=== PATIENT | female | born 1990 | race Caucasian/White ===

== ENCOUNTER 2017-04-22 22:27 | Emergency (ER) | payer OTHER ==
[2017-04-22 23:00] VITALS: BP 128/84; PULSE 102; TEMP 98.6; BMI 21.2
--- NOTE | 2017-04-22 23:35 | PDOC ---
History of Present Illness - General Chief Complaint: Wound Stated Complaint: CYST Time Seen by Provider: 04/22/17 22:39 - History of Present Illness Initial Comments: 04/22/17 23:35 CHIEF COMPLAINT: HISTORY OF PRESENT ILLNESS: No recent travel or sick contacts. PAST MEDICAL HISTORY: Denies past medical history FAMILY HISTORY: Denies SOCIAL HISTORY: Lives at home with ____. Occupation: . Denies tobacco, alcohol, illicit drug use. SURGICAL HISTORY: Denies ALLERGIES: No known drug allergies REVIEW OF SYSTEMS General/Constitutional: Denies fever or chills. Denies weakness, weight change. HEENT: Denies change in vision. Denies ear pain or discharge. Denies sore throat. Cardiovascular: Denies chest pain or shortness of breath. Respiratory: Denies cough, wheezing, or hemoptysis. Gastrointestinal: Denies nausea, vomiting, diarrhea or constipation. Denies rectal bleeding. Genitourinary: Denies dysuria, frequency, or change in urination. Musculoskeletal: Denies joint or muscle swelling or pain. Denies neck or back pain. Skin and breasts: Denies rash or easy bruising. Neurologic: Denies headache, vertigo, loss of consciousness, or loss of sensation. Psychiatric: Denies depression or anxiety. Endocrine: Denies increased thirst. Denies abnormal weight change. Hematologic/Lymphatic: Denies anemia, easy bleeding, or history of blood clots. Allergic/Immunologic: Denies hives or skin allergy. Denies latex allergy. PHYSICAL EXAM General Appearance: Well-appearing, appropriately dressed. No apparent distress , no intoxication. HEENT: EOMI, PERRLA, normal ENT inspection, normal voice, TMs normal, pharynx normal. No conjunctival pallor. No photophobia, scleral icterus. Neck: Supple. Trachea midline. No tenderness, rigidity, carotid bruit, stridor , lymphadenopathy, or thyromegaly. Respiratory/Chest: Lungs CTAB. No shortness of breath, chest tenderness, respiratory distress, accessory muscle use. No crackles, rales, rhonchi, stridor , wheezing, dullness Cardiovascular: RRR. S1, S2. No JVD, murmur, bradycardia, tachycardia. Vascular Pulses: Dorsalis-Pedis (R): 2+, Dorsalis-Pedis (L): 2+ Gastrointestinal/Abdominal: Normal bowel sounds. Abdomen soft, non-distended. No tenderness or rebound tenderness. No organomegaly, pulsatile mass, guarding , hernia, hepatomegaly, splenomegaly. Lymphatic: No adenopathy, tenderness. Musculoskeletal/Extremities: Normal inspection. FROM of all extremities, normal capillary refill. Pelvis Stable. No CVA tenderness. No tenderness to extremities, pedal edema, swelling, erythema or deformity. Integumentary: Appropriate color, dry, warm. No cyanosis, erythema, jaundice or rash Neurologic: recruiting administrator II-XII intact. Fully oriented, alert. Appropriate mood/affect. Motor strength 5/5. No appreciable EOM palsy, facial droop or sensory deficit. Past History - Past Medical History Allergies/Adverse Reactions: Allergies Allergy/AdvReac Type Severity Reaction Status Date / Time No Known Allergies Allergy Verified 04/22/17 22:50 Home Medications: Ambulatory Orders Bacitracin - [Bacitracin Topical Ointment -] 1 applic TP TID #1 tube 04/22/17 Cephalexin Monohydrate [Keflex -] 500 mg PO BID #20 capsule 04/22/17 Dextroamphetamine/Amphetamine [Adderall Xr 20 mg Capsule] 20 mg PO DAILY Escitalopram Oxalate [Lexapro -] 15 mg PO DAILY 04/22/17 - Immunization History Immunization Up to Date: Yes - Suicide/Smoking/Psychosocial Hx Smoking History: Never smoked Have you smoked in the past 12 months: No Information on smoking cessation initiated: No Hx Alcohol Use: No Drug/Substance Use Hx: No Substance Use Type: None *Physical Exam - Vital Signs Last Vital Signs Temp Pulse Resp BP Pulse Ox 98.6 F 102 H 18 128/84 98 04/22/17 22:48 04/22/17 22:48 04/22/17 22:48 04/22/17 22:48 04/22/17 22:48 *DC/Admit/Observation/Transfer Diagnosis at time of Disposition: Ganglion cyst - Discharge Dispostion Disposition: HOME Condition at time of disposition: Stable Admit: No - Prescriptions Prescriptions: Bacitracin - [Bacitracin Topical Ointment -] 1 applic TP TID #1 tube Cephalexin Monohydrate [Keflex -] 500 mg PO BID #20 capsule - Referrals Referrals: Jose De Jesus Garcia MD [Primary Care Provider] - - Patient Instructions Printed Discharge Instructions: Ganglion Cyst, DI for Wound Infection Additional Instructions: Please take medications as prescribed and take the entire course of antibiotics , even if your symptoms improve. As discussed, please follow up with Dr. Galvan for elective removal of your ganglion cyst. If you develop any fever, chills, vomiting, diarrhea, or the area of redness spread on your wrist, or you develop any swelling, warmth, or increased pain to the cyst, please return to the ER.
[2017-04-22] MEDS ORDERED: CEPHALEXIN MONOHYDRATE 500 MG CAPSULE (UD) PO ONE (23:36)
[2017-04-22] MEDS ORDERED: CEPHALEXIN MONOHYDRATE 250 MG CAPSULE (FP) ONE (23:43)
== END 2017-04-22 23:44 | disposition home or self-care (01) ==
LOC: JER 22:27
DX: M67.439 Ganglion, unspecified wrist (principal)
CPT/HCPCS: 99281-25

== ENCOUNTER 2017-07-08 22:07 | Emergency (ER) | payer OTHER ==
--- NOTE | 2017-07-08 22:36 | PDOC ---
History of Present Illness - General Stated Complaint: INFECTION Time Seen by Provider: 07/08/17 22:36 History Source: Patient Exam Limitations: No Limitations - History of Present Illness Initial Comments: 07/08/17 23:23 26-year-old female with no medical history presents to the emergency department complaining of an enlarged pimple that is tender and red since yesterday with slight drainage but subsided this morning. Patient denies fever, chills, nausea/ vomiting, extremity numbness or tingling sensation. Patient states she purchased new tweezers and was talking the hair off her thigh 2 days ago. Patient denies any other complaints. Past History - Past Medical History Allergies/Adverse Reactions: Allergies Allergy/AdvReac Type Severity Reaction Status Date / Time No Known Allergies Allergy Verified 04/22/17 22:50 Home Medications: Ambulatory Orders Dextroamphetamine/Amphetamine [Adderall Xr 20 mg Capsule] 20 mg PO DAILY Escitalopram Oxalate [Lexapro -] 15 mg PO DAILY 04/22/17 Clindamycin [Cleocin -] 300 mg PO TID #21 capsule 07/08/17 Sulfamethoxazole/Trimethoprim [Bactrim Ds -] 1 tab PO BID #14 tablet 07/08/17 - Immunization History Immunization Up to Date: Yes - Suicide/Smoking/Psychosocial Hx Smoking History: Never smoked Have you smoked in the past 12 months: No Hx Alcohol Use: No Drug/Substance Use Hx: No Substance Use Type: None Review of Systems - Review of Systems Able to Perform ROS?: Yes Comments:: 07/08/17 23:26 CONSTITUTIONAL: Absent: fever, chills, diaphoresis, generalized weakness, malaise, loss of appetite HEENT: Absent: rhinorrhea, nasal congestion, throat pain, throat swelling, difficulty swallowing, mouth swelling, ear pain, eye pain, visual Changes CARDIOVASCULAR: Absent: chest pain, loss of consciousness, palpitations, irregular heart rate, peripheral edema RESPIRATORY: Absent: cough, shortness of breath, dyspnea with exertion, orthopnea, wheezing, stridor, hemoptysis GASTROINTESTINAL: Absent: abdominal pain, abdominal distension, nausea, vomiting, diarrhea, constipation, melena, hematochezia GENITOURINARY: Absent: dysuria, frequency, urgency, hesitancy, hematuria, flank pain, genital pain MUSCULOSKELETAL: Absent: myalgia, arthralgia, joint swelling SKIN: Left medial prox thigh pain Absent: rash, itching, pallor HEMATOLOGIC/IMMUNOLOGIC: Absent: easy bleeding, easy bruising, lymphadenopathy, frequent infections ENDOCRINE: Absent: unexplained weight gain, unexplained weight loss, heat intolerance, cold intolerance Is the patient limited Martiniquais proficient: No *Physical Exam - Physical Exam Comments: 07/08/17 23:26 GENERAL: Well developed, well nourished. Awake and alert. No acute distress. HEENT: Normocephalic, atraumatic. PERRLA, EOMI. No conjunctival pallor. Sclera are non- icteric. Moist mucous membranes. Oropharynx is clear. NECK: Supple. Full ROM. No JVD. Carotid pulses 2+ and symmetric, without bruits. No thyromegaly. No lymphadenopathy. CARDIOVASCULAR: Regular rate and rhythm. No murmurs, rubs, or gallops. Distal pulses are 2+ and symmetric. PULMONARY: No evidence of respiratory distress. Lungs clear to auscultation bilaterally. No wheezing, rales or rhonchi. ABDOMINAL: Soft. Non-tender. Non-distended. No rebound or guarding. No organomegaly. Normoactive bowel sounds. MUSCULOSKELETAL Normal range of motion at all joints. No bony deformities or tenderness. No CVA tenderness. EXTREMITIES: No cyanosis. No clubbing. No edema. No calf tenderness. SKIN: Left prox medial thigh/1cm circular erythema/tender on palp Warm and dry. Normal capillary refill. No rashes. No jaundice. NEUROLOGICAL: Alert, awake, appropriate. Cranial nerves 2-12 intact. No deficits to light touch and temperature in face, upper extremities and lower extremities. No motor deficits in the in face, upper extremities and lower extremities. Normoreflexic in the upper and lower extremities. Normal speech. Toes are down- going bilaterally. Gait is normal without ataxia. *DC/Admit/Observation/Transfer Diagnosis at time of Disposition: Abscess - Discharge Dispostion Disposition: HOME Condition at time of disposition: Good - Prescriptions Prescriptions: Clindamycin [Cleocin -] 300 mg PO TID #21 capsule Sulfamethoxazole/Trimethoprim [Bactrim Ds -] 1 tab PO BID #14 tablet - Referrals Referrals: Wilfredo Hwang MD [Staff Physician] - - Patient Instructions Printed Discharge Instructions: DI for Wound Infection, DI for Skin Abscess Additional Instructions: Take the antibiotics as prescribed Tylenol as needed forpain Wound check in 2 days with your physician Return to the ER for fever/chills, worsening symptoms, red streaks - Post Discharge Activity
[2017-07-08 22:41] VITALS: BP 118/66; PULSE 102; TEMP 99.4; BMI 21.2
[2017-07-08] MEDS ORDERED: SULFAMETHOXAZOLE/TRIMETHOPRIM 800MG/160MG D.S. TABLET PO ONE (22:45)
[2017-07-08] MEDS ORDERED: CLINDAMYCIN HCL 300 MG CAPSULE PO ONE (22:45)
[2017-07-08] MEDS ORDERED: SULFAMETHOXAZOLE/TRIMETHOPRIM 800MG/160MG D.S. TABLET ONE (22:46)
[2017-07-08] MEDS ORDERED: CLINDAMYCIN HCL 150 MG CAPSULE (FP) ONE (22:47)
--- NOTE | 2017-07-08 23:31 | PDOC ---
*Physical Exam - Vital Signs Last Vital Signs Temp Pulse Resp BP Pulse Ox 99.4 F 102 H 18 118/66 100 07/08/17 22:38 07/08/17 22:38 07/08/17 22:38 07/08/17 22:38 07/08/17 22:38 ED Treatment Course - Medications Given in the ED: ED Medications Discontinued Medications Generic Name Dose Route Start Last Admin Trade Name Afshin PRN Reason Stop Dose Admin Clindamycin HCl 600 mg 07/08/17 22:45 07/08/17 22:50 Cleocin - PO 07/08/17 22:46 600 mg ONCE ONE Administration Trimethoprim/Sulfamethoxazole 1 each 07/08/17 22:45 07/08/17 22:50 Bactrim Ds - PO 07/08/17 22:46 1 each ONCE ONE Administration Medical Decision Making - Medical Decision Making 07/08/17 23:31 agree with care from HONG Rogel *DC/Admit/Observation/Transfer Diagnosis at time of Disposition: Abscess - Discharge Dispostion Disposition: HOME Condition at time of disposition: Good - Prescriptions Prescriptions: Clindamycin [Cleocin -] 300 mg PO TID #21 capsule Sulfamethoxazole/Trimethoprim [Bactrim Ds -] 1 tab PO BID #14 tablet - Referrals Referrals: Wilfreod Hwang MD [Staff Physician] - - Patient Instructions Printed Discharge Instructions: DI for Wound Infection, DI for Skin Abscess Additional Instructions: Take the antibiotics as prescribed Tylenol as needed forpain Wound check in 2 days with your physician Return to the ER for fever/chills, worsening symptoms, red streaks - Post Discharge Activity
== END 2017-07-08 23:32 | disposition home or self-care (01) ==
LOC: JER 22:07
DX: L02.416 Cutaneous abscess of left lower limb (principal)
CPT/HCPCS: 87070; 87186; 87205; 99282-25

== ENCOUNTER 2017-12-23 07:57 | Emergency (ER) | payer SELFPAY ==
[2017-12-23] MEDS ORDERED: morphine CARPU-JECT 4 MG/1 ML DISP.SYRIN IVPUSH ONE (09:31)
[2017-12-23] MEDS ORDERED: ONDANSETRON 4 MG/2 ML VIAL IVPB ONE (09:31)
[2017-12-23] MEDS ORDERED: SODIUM CHLORIDE 1,000 ML IV STA ×2 (09:31→13:23)
--- NOTE | 2017-12-23 09:40 | PDOC ---
Attending Attestation - Resident Resident Name: Juan Ortega - HPI HPI: 12/23/17 09:19 Pt presents to the ED complaining of the acute onset of diffuse abdominal pain that started abruptly this morning, accompanied by two episodes of non bloody, non bilious emesis. Denies fevers or urinary complaints. States that her last period was last week and denies vaginal bleeidng or discharge. History of appendectomy. - Physicial Exam PE: 12/23/17 09:24 Agree with resident exam. Patient is pale and appears uncomfortable. Abdomen is diffusely tender, without guarding or rebound. + CVA tenderness, worse on the right. - Medical Decision Making 12/23/17 09:26 Pt presents to the ED complaining of the acute onset of diffuse abdominal pain, nausea and vomiting. Patient is diffusely tender and mildly hypotensive on exam. Differential includes ectopic , PID, SBO, less likely UTI, intestinal perforation, ovarian cyst. Will give pain and nausea control, check labs, check CT abdomen pelvis and reassess.
--- NOTE | 2017-12-23 09:41 | PDOC ---
History of Present Illness - General Time Seen by Provider: 12/23/17 09:12 History Source: Patient - History of Present Illness Initial Comments: 12/23/17 09:34 27F with pmh of appendectomy presents to the ED for diffuse abdominal pain, nausea and vomiting since waking up this morning. Pain is 10/10, diffuse and cramping. Denies dysuria/ LMP was a week ago. Last BM was yesterday, doesn't remember passing gas since the pain started. Usually gets painful menses. Had intercourse last night. Past History - Past Medical History Allergies/Adverse Reactions: Allergies Allergy/AdvReac Type Severity Reaction Status Date / Time No Known Allergies Allergy Verified 04/22/17 22:50 Home Medications: Ambulatory Orders Dextroamphetamine/Amphetamine [Adderall Xr 20 mg Capsule] 20 mg PO DAILY Escitalopram Oxalate [Lexapro -] 15 mg PO DAILY 04/22/17 Clindamycin [Cleocin -] 300 mg PO TID #21 capsule 07/08/17 Sulfamethoxazole/Trimethoprim [Bactrim Ds -] 1 tab PO BID #14 tablet 07/08/17 COPD: No - Surgical History Appendectomy: Yes - Immunization History Immunization Up to Date: Yes - Suicide/Smoking/Psychosocial Hx Smoking History: Never smoked Have you smoked in the past 12 months: No Hx Alcohol Use: No Drug/Substance Use Hx: No Substance Use Type: None Review of Systems - Review of Systems Able to Perform ROS?: Yes Is the patient limited Icelandic proficient: No Constitutional: No: Symptoms Reported, Diaphoresis, Fever, Loss of Appetite, Malaise HEENTM: No: Symptoms Reported Respiratory: No: Symptoms reported Cardiac (ROS): No: Symptoms Reported ABD/GI: Yes: See HPI : No: Symptoms Reported Musculoskeletal: No: Symptoms Reported All Other Systems: Reviewed and Negative *Physical Exam - Vital Signs Last Vital Signs Temp Pulse Resp BP Pulse Ox 97.8 F 78 16 90/52 98 12/23/17 09:23 12/23/17 09:23 12/23/17 09:23 12/23/17 09:23 12/23/17 09:23 - Physical Exam General Appearance: Yes: Nourished, Appropriately Dressed, Apparent Distress, Moderate Distress, Thin HEENT: positive: EOMI, YOLA, Normal ENT Inspection Respiratory/Chest: positive: Lungs Clear, Normal Breath Sounds. negative: Chest Tender, Respiratory Distress Cardiovascular: positive: Regular Rhythm, Regular Rate, S1, S2 Female Pelvic Exam: positive: normal external exam, cervical os closed, discharge (thin clear discharge, no foul odor), lesions (Large cervix with finley patchy discoloration in lower left quarter). negative: CMT, adnexal tenderness , vaginal bleeding Gastrointestinal/Abdominal: positive: Normal Bowel Sounds, Tender (in all quadrant but more so suprapubic and URQ), Decreased BS Musculoskeletal: positive: Normal Inspection. negative: CVA Tenderness Integumentary: positive: Normal Color, Dry, Warm Neurologic: positive: Fully Oriented, Alert, Normal Mood/Affect ED Treatment Course - LABORATORY CBC & Chemistry Diagram: 12/23/17 08:35 12/23/17 09:08 - RADIOLOGY Radiology Studies Ordered: Category Date Time Status ABDOMEN & PELVIS CT WITH CONTR [CT] Stat CT Scan 12/23/17 09:29 Ordered Medical Decision Making - Medical Decision Making 12/23/17 09:53 27F with pmh of appendectomy presents to the ED for diffuse abdominal pain, nausea and vomiting since waking up this morning. SBO vs ectopic preg vs PID vs cholelithiasis vs torsion vs rupture ovarian cyst. Will obtain basic labs, lactate and status before CT scan abdomen and pelvis with IV contrast. GC/Chlamydia swab sent as well. 12/23/17 12:00 12/23/17 13:43 CT Abdomen: Examination of the pelvis demonstrates large, bilateral ovarian cysts. The right ovarian cyst measures 6.1 x 5.6 x 9.2 cm. The left ovarian cyst contains septations and measures 5.8 x 5.4 x 9.6 cm. There is free pelvic fluid present suspicious for cyst rupture. Will r/o torsion with transvaginal ultrasound Normal appearing uterus with normal thickness of the endometrial stripe. Large right and left ovarian complex cyst, as described above with normal peripheral vascular flow within the very thin visualized ovarian parenchyma.. 12/23/17 16:[address] Fernandez who was the OBGYN torsion spring coiling machine setter but he stated he was too uncomfortable to see the patient. Spoke to Dr. Wilkinson who accepted to see the patient in her office tomorrow. Patient counseled. Ok to D/c with recommendations. 12/23/17 16:40 *DC/Admit/Observation/Transfer Diagnosis at time of Disposition: Ovarian cyst, bilateral, Ruptured ovarian cyst - Discharge Dispostion Disposition: HOME Condition at time of disposition: Improved Decision to Admit order: No - Referrals Referrals: Iva Wilkinson MD [Staff Physician] - - Patient Instructions Printed Discharge Instructions: Ovarian Cyst Removal -- Laparoscopic Surgery, Ovarian Cyst Additional Instructions: Follow up with Dr. Wilkinson tomorrow. Come back to the emergency department for any new, worsening or concerning symptom. - Post Discharge Activity
[2017-12-23 10:12] LABS: BASO % 0.5 % (0-2.0); EOS % 2.7 % (0-4.5); HEMATOCRIT 37.3 % (32.4-45.2); MCH 27.2 pg (25.7-33.7); MCHC 32.2 g/dl (32.0-36.0); MEAN CELL VOLUME 84.4 fl (80-96); MEAN PLT VOLUME 10.3 fl (7.5-11.1); MONO % 4.9 % (3.8-10.2); NEUT % 67.9 % (42.8-82.8); PLATELET COUNT 253 K/MM3 (134-434); RBC 4.42 M/mm3 (3.60-5.2); RDW 16.6 % (11.6-15.6); WHITE BLOOD COUNT 8.8 K/mm3 (4.0-10.0)
[2017-12-23 10:24] LABS: ANION GAP 10 (8-16); BLOOD UREA NITROGEN 9 mg/dL (7-18); CHLORIDE 108 mmol/L (98-107); CO2 22 mmol/L (21-32); CREATININE 0.6 mg/dL (0.55-1.02); GLUCOSE,RANDOM 110 mg/dL (74-106); POTASSIUM 4.3 mmol/L (3.5-5.1); SODIUM 140 mmol/L (136-145)
[2017-12-23 10:25] LABS: ALBUMIN 3.6 g/dl (3.4-5.0); ALK PHOS 43 U/L (45-117); BILIRUBIN,TOTAL 0.2 mg/dL (0.2-1.0); CALCIUM 8.3 mg/dL (8.5-10.1); SGOT/AST 21 U/L (15-37); SGPT/ALT 18 U/L (12-78); TOT PROT 7.7 g/dl (6.4-8.2)
[2017-12-23 11:21] VITALS: BMI 15.0
[2017-12-23 12:12] LABS: HCG,QUALITATIVE URINE Negative
[2017-12-23 12:13] LABS: URINE APPEARANCE CLEAR; URINE BILIRUBIN NEGATIVE (<2.0 mg/dL); URINE BLOOD NEGATIVE (NEGATIVE); URINE GLUCOSE (UA) NEGATIVE (NEGATIVE); URINE KETONE NEGATIVE (NEGATIVE); URINE LEUK ESTERASE NEGATIVE (NEGATIVE); URINE NITRITE NEGATIVE (NEGATIVE); URINE PROTEIN NEGATIVE (NEGATIVE)
[2017-12-23 12:14] LABS: URINE COLOR DK YELLOW
[2017-12-23 17:02] VITALS: BP 119/68; PULSE 93; TEMP 98.2
== END 2017-12-23 17:03 | disposition home or self-care (01) ==
LOC: JER 07:57
PROC: 3E0337Z Introduction of Electrolytic and Water Balance Substance into Peripheral Vein, Percutaneous Approach (ICD-10-PCS; principal; 2017-12-23)
PROC: 3E033NZ Introduction of Analgesics, Hypnotics, Sedatives into Peripheral Vein, Percutaneous Approach (ICD-10-PCS; 2017-12-23)
PROC: 3E033GC Introduction of Other Therapeutic Substance into Peripheral Vein, Percutaneous Approach (ICD-10-PCS; 2017-12-23)
DX: N83.292 Other ovarian cyst, left side (principal); N83.291 Other ovarian cyst, right side
CPT/HCPCS: 36415; 74177-TC; 76830-TC; 80053; 81003; 83605; 84703; 85025; 99281-25; J7030

== ENCOUNTER 2018-08-10 08:06 | Day surgery (SDC) | payer OTHER ==
[2018-08-09 11:34] VITALS: BMI 25.2
[2018-08-10] MEDS ORDERED: MIDAZOLAM HCL 2 MG/2 ML SINGLE DOSE VIAL ONE (09:08)
[2018-08-10] MEDS ORDERED: PROPOFOL 20 ML ONE (09:08)
[2018-08-10] MEDS ORDERED: GUM MASTIC/STORAX/MSAL/ALCOHOL 1 DRP DROPSBTL MC ONE (10:19)
[2018-08-10] MEDS ORDERED: BUPIVACAINE HCL/PF 0.25% (2.5MG/ML) 10 ML VIAL IJ ONE (10:26)
[2018-08-10] MEDS ORDERED: ONDANSETRON 4 MG/2 ML VIAL ONE (10:37)
[2018-08-10] MEDS ORDERED: ONDANSETRON 4 MG/2 ML VIAL IVPUSH PRN (12:01)
[2018-08-10] MEDS ORDERED: oxyCODONE HCL 5 MG TABLET PO PRN ×2 (12:01)
[2018-08-10] MEDS ORDERED: LACTATED RINGERS SOLUTION 1,000 ML IV SCH (12:15)
[2018-08-10 13:04] VITALS: BP 116/67; PULSE 70; TEMP 97.5
--- NOTE | 2018-08-10 20:14 | OP ---
DATE OF OPERATION: 08/10/2018 PREOPERATIVE DIAGNOSIS: Right wrist volar radial mass. POSTOPERATIVE DIAGNOSIS: Right wrist volar radial mass. OPERATIVE PROCEDURE: Right wrist mass incision. SURGEON: Nick Martin M.D. OTHER SALES SUPPORT WORKER: Marissa Gaspar ANESTHESIA: General. COMPLICATIONS: None. ESTIMATED BLOOD LOSS: Minimal. INDICATION FOR PROCEDURE: The patient is a 27-year-old female with the above findings, indicated for operative treatment. Risks, benefits, and alternatives were discussed with the patient at length. Proper informed consent was obtained. DESCRIPTION OF PROCEDURE: After proper identification of the patient and correct operative site, patient was brought to the operating room and placed supine on the operating room table, all bony prominences well padded. General anesthesia was provided by the anesthesiologist and adequate for procedure. Esmarch bandage to exsanguinate the right upper extremity. Tourniquet inflated to 250 mmHg. Curvilinear incision made over the volar aspect of the right wrist over the mass. Incision was taken sharply through skin with blunt and sharp dissection to subcutaneous tissues. Mass was found to be a ganglion cyst, and it was intimately involved with the radial artery. This was dissected free of the mass. The mass was then dissected down to the level of the radial carpal joint where it was found to be coming from, and it was excised including its stalk and sent for pathological evaluation. Electrocautery was used to cauterize any bleeding. The tourniquet was released. Hand was well perfused. There was no significant bleeding. Radial artery remained intact. Wound was irrigated and repaired with 4-0 Vicryl, 4-0 Monocryl suture. Sterile dressings were applied. Patient reversed from anesthesia and brought to the recovery room in stable condition. Jignesh Person, the real estate executive assistant, was integral throughout the procedure. Procedure could not have been performed without a skilled operative real estate executive assistant. NICK MARTIN M.D. DI/[id number]
--- NOTE | 2018-08-12 17:42 | PATH ---
Surgical Pathology Report Patient Name: JOSE MIGUEL FINK [facility]. Rec. #: [id number] /Age/Gender: 1990 (Age: 27) / F Account: [id number] Location: [facility] Taken: 08/10/2018 Received: 08/10/2018 Reported: 08/12/2018 Physicians: Nick Shelley M.D. Specimen(s) Received RIGHT WRIST Clinical History Right wrist mass, ganglion cyst Final Diagnosis RIGHT WRIST GANGLION CYST, EXCISION: CONSISTENT WITH GANGLION CYST. Electronically Signed Xenia Tineo M.D. Gross Description Received in formalin labeled "right wrist ganglion cyst," is a 1.4 x 0.5 x 0.2 cm omalley, intact cystic structure. The specimen is submitted in toto in one cassette. 08/11/201808/11/2018
== END 2018-08-10 11:45 | disposition home or self-care (01) ==
LOC: FASU 08:06
PROVIDERS: ATTEND Orthopaedic Surgery Hand Surgery
PROC: 0LB50ZZ Excision of Right Lower Arm and Wrist Tendon, Open Approach (ICD-10-PCS; principal; 2018-08-10 09:30)
DX: M67.431 Ganglion, right wrist (principal)
CPT/HCPCS: 84703; 88304-TC; 94760

== ENCOUNTER 2021-02-05 06:05 | Emergency (ER) | payer OTHER ==
[2021-02-05 06:30] VITALS: BP 113/73; PULSE 94; TEMP 98; BMI 25.2
[2021-02-05] MEDS ORDERED: KETOROLAC TROMETHAMINE 60 MG/2 ML VIAL IM ONE (07:40)
[2021-02-05] MEDS ORDERED: KETOROLAC TROMETHAMINE 30 MG/1 ML VIAL ONE (07:43)
[2021-02-05 08:39] LABS: BASO % 0.3 % (0-2.0); EOS % 0.8 % (0-4.5); HEMATOCRIT 37.6 % (32.4-45.2); HEMOGLOBIN 12.7 GM/dL (10.7-15.3); LYMPH % 25.3 % (8-40); MCHC 33.8 g/dl (32.0-36.0); MEAN CELL VOLUME 91.6 fl (80-96); MEAN PLT VOLUME 10.4 fl (7.5-11.1); MONO % 5.5 % (3.8-10.2); NEUT % 68.1 % (42.8-82.8); PLATELET COUNT 203 10^3/uL (134-434); RBC 4.11 M/mm3 (3.60-5.2); RDW 12.3 % (11.6-15.6); WHITE BLOOD COUNT 12.4 K/mm3 (4.0-10.0)
[2021-02-05 08:51] LABS: CALCIUM 8.3 mg/dL (8.5-10.1)
[2021-02-05 08:52] LABS: BLOOD UREA NITROGEN 12.3 mg/dL (7-18)
[2021-02-05 08:55] LABS: CREATININE 0.8 mg/dL (0.55-1.3)
[2021-02-05 08:56] LABS: BILIRUBIN,TOTAL 0.5 mg/dL (0.2-1); TOT PROT 7.2 g/dl (6.4-8.2)
== END 2021-02-05 10:34 | disposition home or self-care (01) ==
LOC: JER 06:05
PROC: 3E0233Z Introduction of Anti-inflammatory into Muscle, Percutaneous Approach (ICD-10-PCS; principal; 2021-02-05)
DX: M54.6 Pain in thoracic spine (principal)
CPT/HCPCS: 36415; 71275-TC; 80053; 84703; 85025; 93005; 93010; 99285-25; Q9967